=== PATIENT | female | born 1940 | race Caucasian/White ===

== ENCOUNTER 2019-02-16 17:07 | Inpatient (IN) ==
[2019-02-16 17:49] LABS: Hematocrit 38.7 % (35.3-44.9); Hemoglobin 13.2 g/dL (11.5-15.4); Mean Corpuscular HGB Conc 34.1 g/dL (31.6-35.5); Mean Corpuscular Hemoglobin 30.6 pg (28.0-33.3); Mean Corpuscular Volume 89.6 fL (83.0-100.0); Mean Platelet Volume 10.8 fL (9.4-12.4); Platelet Count 287 K/mcL (140-400); Red Blood Count 4.32 M/mcL (3.82-4.97); Red Cell Distribution Width 14.2 % (11.5-14.5); White Blood Count 5.6 K/mcL (4.3-11.1)
[2019-02-16 18:08] LABS: Alanine Aminotransferase 8 Units/L (7-52); Albumin 4.4 g/dL (3.5-5.7); Albumin/Globulin Ratio 1.6 (1.1-2.2); Alkaline Phosphatase 64 Units/L (34-104); Aspartate Amino Transferase 12 Units/L (13-39); BUN/Creatinine Ratio 27 (6-26); Bilirubin,Direct 0.1 mg/dL (0.0-0.2); Bilirubin,Indirect 0.6 mg/dL (0.0-1.2); Bilirubin,Total 0.7 mg/dL (0.3-1.0); Blood Urea Nitrogen 23 mg/dL (8-23); Calcium 9.5 mg/dL (8.6-10.3); Carbon Dioxide 29 mEq/L (23-29); Chloride 94 mEq/L (98-107); Globulin 2.8 g/dL (2.4-3.5); Glucose 168 mg/dL (70-105); Lipase 11 Units/L (11-82); Osmolality,Calculated 292 (280-300); Potassium 3.2 mEq/L (3.5-5.1); Sodium 137 mEq/L (136-145); Total Protein 7.2 g/dL (6.4-8.9); eGFR For African Americans > 60 (> 60); eGFR For Non-African Americans > 60 (> 60)
[2019-02-16 18:23] LABS: Lymphocytes # 1.6 K/mcL (0.6-4.6); Monocytes # 0.9 K/mcL (0.0-1.3); Neutrophils # 3.1 K/mcL (1.6-8.9)
[2019-02-16 18:24] LABS: Platelet Estimate Normal (Normal); Reactive Lymphocytes Present (Not Present)
[2019-02-16] MEDS ORDERED: *HR* Promethazine 25 MG/ML VIAL IVP ONE (19:01)
[2019-02-16] MEDS ORDERED: Famotidine 20 MG/2 ML VIAL IVP ONE (19:01)
[2019-02-16] MEDS ORDERED: 0.9 % Sodium Chloride 1,000 ML IVC ONE (19:01)
--- NOTE | 2019-02-16 19:10 | Emergency Department Note ---
Disposition Clinical Impression: Small bowel obstruction Disposition: Admitted As Inpatient Condition: Fair Referrals: Leilani Vidales MD [Primary Care Provider] - Forms: ED Satisfaction Letter, Work/School Release Time of Disposition: 20:31 Abdominal Pain HPI - General Chief Complaint: ED Abdominal Pain Stated Complaint: Vomiting x3 days Time Seen by Provider: 02/16/19 18:45 Source: patient Mode of arrival: ambulatory Limitations: no limitations Nursing Notes Reviewed: Yes Vital Signs Reviewed: Yes - History of Present Illness Pain Scale: 5 - Related Data Previous Rx's Medication Instructions Recorded Famotidine [Pepcid] 20 mg PO BID #60 tablet 05/08/16 Ondansetron ODT [Zofran ODT] 4 mg SL Q6HR PRN #10 tab.rapdis 05/08/16 Allergies Allergy/AdvReac Type Severity Reaction Status Date / Time Penicillins AdvReac Rash Verified 05/08/16 11:24 All systems ED: reviewed and negative except as stated. Review of Systems: As Per HPI Abdominal Pain PMH - Past Medical History Medical history: Reports: cancer, CHF, CVA, hypertension Female Surgical History: Reports: hysterectomy Psychiatric history: Reports: anxiety, depression - Social History Smoking status: Former smoker Alcohol use: Reports: none Drug use: Reports: none Physical Exam - General Limitations: no limitations General appearance: alert, in no apparent distress Course Vital Signs Temperature 97.9 F 02/16/19 17:12 Pulse Rate 104 02/16/19 17:12 Respiratory Rate 18 02/16/19 17:12 Blood Pressure 143/84 02/16/19 17:12 O2 Sat by Pulse Oximetry 97 02/16/19 17:12 Temperature 97.9 F 02/16/19 17:12 Pulse Rate 104 02/16/19 17:12 Respiratory Rate 18 02/16/19 17:12 Blood Pressure 143/84 02/16/19 17:12 O2 Sat by Pulse Oximetry 100 02/16/19 20:02 Oxygen Delivery Oxygen Delivery Room Air Abdominal Pain - Lab Data Result diagrams: 02/16/19 17:31 18 17:31 Lab Results 02/16/19 02/16/19 Range/Units 17:31 17:31 WBC 5.6 (4.3-11.1) K/mcL RBC 4.32 (3.82-4.97) M/mcL Hgb 13.2 (11.5-15.4) g/dL Hct 38.7 (35.3-44.9) % MCV 89.6 (83.0-100.0) fL MCH 30.6 (28.0-33.3) pg MCHC 34.1 (31.6-35.5) g/dL RDW 14.2 (11.5-14.5) % Plt Count 287 (140-400) K/mcL MPV 10.8 (9.4-12.4) fL Seg Neutrophils % 32.0 % Band Neutrophils % 24.0 H (0-4) % Lymphocytes % 28.0 % Monocytes % 16.0 % Neutrophils # 3.1 (1.6-8.9) K/mcL Lymphocytes # 1.6 (0.6-4.6) K/mcL Monocytes # 0.9 (0.0-1.3) K/mcL Reactive Lymphocytes Present A (Not Present) Platelet Estimate Normal (Normal) Sodium 137 (136-145) mEq/L Potassium 3.2 L (3.5-5.1) mEq/L Chloride 94 L (98-107) mEq/L Carbon Dioxide 29 (23-29) mEq/L BUN 23 (8-23) mg/dL Creatinine 0.86 (0.60-1.20) mg/dL Est GFR ( Amer) > 60 (> 60) Est GFR (Non-Af Amer) > 60 (> 60) BUN/Creatinine Ratio 27 H (6-26) Glucose 168 H (70-105) mg/dL Calculated Osmolality 292 (280-300) Calcium 9.5 (8.6-10.3) mg/dL Total Bilirubin 0.7 (0.3-1.0) mg/dL Direct Bilirubin 0.1 (0.0-0.2) mg/dL Indirect Bilirubin 0.6 (0.0-1.2) mg/dL AST 12 L (13-39) Units/L ALT 8 (7-52) Units/L Alkaline Phosphatase 64 (34-104) Units/L Serum Total Protein 7.2 (6.4-8.9) g/dL Albumin 4.4 (3.5-5.7) g/dL Globulin 2.8 (2.4-3.5) g/dL Albumin/Globulin Ratio 1.6 (1.1-2.2) Lipase 11 (11-82) Units/L Attestation Statement - Attestation Attestation: I have seen this patient with the resident physician, I have personally evaluated this patient. I had reviewed the chart and document dictation by the resident physician and aM in agreement with the information documented by the resident physician. Please see documentation by the resident physician for complete chart including past medical history, family medical history, review of systems, current history and physical and laboratory and imaging studies. I was present for all procedures, provided direct supervision for all procedures, was present for the entirety of all procedures and provided direct guidance during the procedures. Please see documentation by the resident physician for any procedures performed. I have reviewed all interpretations of EKGs, and reviewed all EKGs performed on patient's as well. I have also reviewed reports of imaging as provided by radiology. Patient presented to the emergency room with chief complaint of abdominal b loating sensation nausea and vomiting since Thursday. She states she ate a bunch of peanuts and then afterwards started having the symptoms and she reports she really has not really keep anything down since that time she feels bloated especially in her upper abdomen. She states that she suddenly abdominal pain is just a soreness sensation. Patient denies diarrhea or black or bloody stool does report a history of diverticulitis with similar symptoms related to this in the past. Patient denies headache neck pain chest pain shortness of breath fevers chills cough or sputum production. She states that it does not feel like anything is stuck in her esophagus. She states she has been ill to sip on water but then does start to throw up. She reports a prior hysterectomy and radiation and chemotherapy related to cancer many years ago no other abdominal surgeries. She does not really tried taking anything for this but states that she has just been trying to sip on water because if she eats food or even tries to drink a protein shake or anything like that she will throw up. She denies any urinary changes. She denies leg pain or leg swelling. On presentation she is alert and oriented 3 and in no acute distress. Cranial nerves are intact. Oropharynx reveals no evidence of abnormal mucous membranes. No JVD. Full nontender range of motion of the neck. Heart is regular, occasi onal auscultated PAC. 2/6 systolic murmur rubs or gallops. Lungs are clear. The abdomen is soft and nontender upper abdomen appears slightly bloated although there are auscultated bowel sounds. There is no palpable or pulsatile Mass. no ecchymosis on the abdomen. No fluid wave. No shake tenderness or percussion tenderness. No obvious hernias. Skin is warm dry without rash or petechiae. No significant peripheral edema no evidence of DVT normal distal pulses. Patient had an IV placed she was given IV fluids IV Zofran and IV Pepcid. CBC basic metabolic profile LFTs lipase were all within acceptable limits apart from a slightly low potassium of 3.2. Abdominal CT scan was ordered to rule out acute intra-abdominal pathology such as diverticulitis, bowel perforation, obstruction or other acute surgical process of the abdomen. CT scan as interpreted by radiology showed a small bowel obstruction IMPRESSION: Findings consistent with intermediate grade small bowel obstruction. There is a narrowed loop of small bowel in the right lower quadrant which may reflect a transition point. Patient had NG tube ordered, and surgery was paged. Patient will be admitted to the hospital for further management of a small bowel obstruction.
--- NOTE | 2019-02-16 20:40 | Emergency Department Note ---
Disposition Clinical Impression: Small bowel obstruction Disposition: Admitted As Inpatient Condition: Fair Time of Disposition: 19:41 General Adult HPI - General Chief complaint: ED Abdominal Pain Stated complaint: Vomiting x3 days Time Seen by Provider: 02/16/19 18:45 Source: patient Mode of arrival: ambulatory Limitations: no limitations Nursing Notes Reviewed: Yes Vital Signs Reviewed: Yes - History of Present Illness HPI Narrative: Patient is 78-year-old female past medical history of uterine cancer with removal and radiation. Presenting the emergency department tonight for a bdominal bloating and nausea and vomiting since Thursday. She states she had a bunch of peanuts and developed the symptoms and has available to keep down anything sustained she describes her abdominal pain as a soreness sensation. Patient denies dark tarry stools or bright red blood she has been having bowel movements and has a history of diverticulitis patient denies chest pain, shortness of breath, headache, neck pain, fevers, chills, cough. She has not tried taking any pain medications and has only been taking sips of water she says she throws up immediately. Pain Scale: 5 - Related Data Home Medications Medication Instructions Recorded Confirmed Aspirin/Calcium Carbonate/Mag 325 mg PO DAILY 02/16/19 02/16/19 [Aspirin Buffered 325 mg Tab] Furosemide [Lasix] 40 mg PO DAILY PRN 02/16/19 02/16/19 Pravastatin Sodium [Pravachol] 40 mg PO DAILY 02/16/19 02/16/19 Metoprolol [Lopressor] 100 mg PO BID 02/17/19 02/17/19 Allergies Allergy/AdvReac Type Severity Reaction Status Date / Time Penicillins AdvReac Rash Verified 05/08/16 11:24 All systems ED: reviewed and negative except as stated. Review of Systems: As Per HPI Constitutional: Denies: fever, chills Eyes: Denies: eye pain, eye discharge ENT ED: Denies: ear pain, throat pain Cardiovascular: Denies: chest pain, palpitations Respiratory: Denies: cough, dyspnea, wheezes Gastrointestinal: Reports: abdominal pain, nausea Genitourinary: Denies: urgency, dysuria Musculoskeletal: Denies: back pain, neck pain Integumentary: Denies: rash, abrasion Neurological: Denies: headache, weakness Psychiatric: Denies: anxiety, depression Endocrine: Denies: fatigue, heat or cold intolerance Hematological/Lymphatic: Denies: easy bleeding, easy bruising Allergic/Immunologic: Denies: facial swelling, urticaria Past Medical History - Past Medical History Attestation: Yes The following information was validated with the patient. Medical history: Reports: cancer, CHF, CVA, hypertension Psychiatric history: Reports: anxiety, depression - Social History Smoking Status: Former smoker Smokeless Tobacco Status: No Alcohol use: Reports: none Drug use: Reports: none Physical Exam - General Limitations: no limitations General appearance: alert, in no apparent distress - Head Head exam: atraumatic, normocephalic - Eye Eye exam: Present: normal appearance, PERRL, EOMI - ENT ENT exam: normal exam, normal oropharynx, mucous membranes moist - Neck Neck exam: Present: normal inspection, full ROM - Chest Chest inspection: Present: normal inspection, symmetric chest wall rise. Absent: tenderness - Respiratory Respiratory exam: Present: normal lung sounds bilaterally. Absent: respiratory distress, wheezes - Cardiovascular Cardiovascular exam: Present: regular rate, normal rhythm, normal heart sounds - Abdominal Exam Abdominal exam: Present: soft, tenderness Abdominal tenderness: Present: epigastrium, mild - Extremities Exam Extremities exam: Present: normal inspection, full ROM - Expanded Lower Extremity Exam Hip/Pelvis exam: Present: normal inspection, full ROM Neurovascular/Tendon exam: Present: normal capillary refill. Absent: pulse deficit, motor deficit - Back Exam Back exam: Present: normal inspection, full ROM - Neurological Exam Neurological exam: Present: alert, oriented X3 - Psychiatric Psychiatric exam: Present: normal affect, normal mood - Skin Skin exam: Present: warm, dry Course Vital Signs Temperature 97.9 F 02/16/19 17:12 Pulse Rate 104 02/16/19 17:12 Respiratory Rate 18 02/16/19 17:12 Blood Pressure 143/84 02/16/19 17:12 O2 Sat by Pulse Oximetry 97 02/16/19 17:12 Temperature 98.6 F 02/16/19 22:21 Pulse Rate 83 02/16/19 22:21 Respiratory Rate 16 02/16/19 22:21 Blood Pressure 138/78 02/16/19 22:21 O2 Sat by Pulse Oximetry 94 02/16/19 22:21 Oxygen Delivery Oxygen Delivery Room Air Medical Decision Making - [facility] Narrative Medical decision making narrative: Patient presenting with nausea and vomiting abdominal pain concern for small bowel obstruction or gastritis or other obstruction. We will evaluate with labs as well as a CT scan of the abdomen and pelvis. Patient is given IV fluids IV Zofran and IV Pepcid. The patient found to have a small bowel obstruction on CT scan Discussed the patient's case with general surgery who will see her. Patient to be admitted to hospitalist service. - Medical Records Medical records reviewed: Yes I reviewed the patient's medical records. - Lab Data Lab results reviewed: Yes I reviewed the patient's lab results. Result diagrams: 02/17/19 09:08 02/17/19 09:08 Lab Results 02/16/19 02/16/19 02/16/19 Range/Units 17:31 17:31 21:01 WBC 5.6 (4.3-11.1) K/mcL RBC 4.32 (3.82-4.97) M/mcL Hgb 13.2 (11.5-15.4) g/dL Hct 38.7 (35.3-44.9) % MCV 89.6 (83.0-100.0) fL MCH 30.6 (28.0-33.3) pg MCHC 34.1 (31.6-35.5) g/dL RDW 14.2 (11.5-14.5) % Plt Count 287 (140-400) K/mcL MPV 10.8 (9.4-12.4) fL Seg Neutrophils % 32.0 % Band Neutrophils % 24.0 H (0-4) % Lymphocytes % 28.0 % Monocytes % 16.0 % Neutrophils # 3.1 (1.6-8.9) K/mcL Lymphocytes # 1.6 (0.6-4.6) K/mcL Monocytes # 0.9 (0.0-1.3) K/mcL Reactive Lymphocytes Present A (Not Present) Platelet Estimate Normal (Normal) Sodium 137 (136-145) mEq/L Potassium 3.2 L (3.5-5.1) mEq/L Chloride 94 L (98-107) mEq/L Carbon Dioxide 29 (23-29) mEq/L BUN 23 (8-23) mg/dL Creatinine 0.86 (0.60-1.20) mg/dL Est GFR ( Amer) > 60 (> 60) Est GFR (Non-Af Amer) > 60 (> 60) BUN/Creatinine Ratio 27 H (6-26) Glucose 168 H (70-105) mg/dL Calculated Osmolality 292 (280-300) Calcium 9.5 (8.6-10.3) mg/dL Total Bilirubin 0.7 (0.3-1.0) mg/dL Direct Bilirubin 0.1 (0.0-0.2) mg/dL Indirect Bilirubin 0.6 (0.0-1.2) mg/dL AST 12 L (13-39) Units/L ALT 8 (7-52) Units/L Alkaline Phosphatase 64 (34-104) Units/L Serum Total Protein 7.2 (6.4-8.9) g/dL Albumin 4.4 (3.5-5.7) g/dL Globulin 2.8 (2.4-3.5) g/dL Albumin/Globulin Ratio 1.6 (1.1-2.2) Lipase 11 (11-82) Units/L Urine Color Yellow (Yellow) Urine Clarity Clear (Clear) Urine pH 6.0 (5.0-8.0) pH Units Ur Specific [place] 1.027 H (1.010-1.025) Urine Protein 100 H (Neg-Trace) mg/dL Urine Glucose (UA) Normal (Normal) mg/dL Urine Ketones 15 H (Negative) mg/dL Urine Blood Trace H (Negative) Urine Nitrite Negative (Negative) Urine Bilirubin Small H (Negative) Urine Urobilinogen Normal (Normal) mg/dL Ur Leukocyte Esterase Negative (Negative) Urine Microscopic RBC 15-30 H (0-3) per hpf Urine Microscopic WBC 0-3 (0-3) per hpf Ur Squamous Epith Cells Moderate H (None-Few) per lpf Urine Bacteria None Seen (None-Few) per hpf Hyaline Casts None Seen (None-Few) per lpf Ur Culture Indicated? NO (NO) - Radiology Data Radiology results reviewed: Yes I reviewed the patient's radiology results. Abdomen/Pelvis CT 02/16/19 19:52 IMPRESSION: Findings consistent with intermediate grade small bowel obstruction. There is a narrowed loop of small bowel in the right lower quadrant which may reflect a transition point. D/ / 02/16/2019 20:05:19 Gustavo Baez MD / farideh Interpreting Provider: Gustavo Baez MD Attestation Statement - Attestation Attestation: I have seen this patient with the resident physician, I have personally evaluated this patient. I had reviewed the chart and document dictation by the resident physician and aM in agreement with the information documented by the resident physician. Please see documentation by the resident physician for complete chart including past medical history, family medical history, review of systems, current history and physical and laboratory and imaging studies. I was present for all procedures, provided direct supervision for all procedur es, was present for the entirety of all procedures and provided direct guidance during the procedures. Please see documentation by the resident physician for any procedures performed. I have reviewed all interpretations of EKGs, and reviewed all EKGs performed on patient's as well. I have also reviewed reports of imaging as provided by radiology.
[2019-02-16 21:23] LABS: Bilirubin,Urine Small (Negative); Blood,Urine Trace (Negative); Clarity,Urine Clear (Clear); Color,Urine Yellow (Yellow); Glucose,Urine (UA) Normal (Normal); Ketones,Urine 15 mg/dL (Negative); Leukocyte Esterase,Urine Negative (Negative); Nitrite,Urine Negative (Negative); Protein,Urine 100 mg/dL (Neg-Trace); Specific Gravity,Urine 1.027 (1.010-1.025); Urobilinogen,Urine Normal (Normal)
[2019-02-16 21:26] LABS: Bacteria,Urine None Seen per hpf (None-Few); Hyaline Casts,Urine None Seen per lpf (None-Few); RBC,Urine 15-30 per hpf (0-3); Squamous Epithelial Cell,Urine Moderate per lpf (None-Few); WBC,Urine 0-3 per hpf (0-3)
--- NOTE | 2019-02-17 03:26 | AcuteCare Surgery Consult Note ---
Date of Encounter: 02/17/19 Time of Encounter: 03:22 Assessment and Plan (1) Small bowel obstruction Current Visit: Yes Status: Acute 78F with small bowel obstruction; afebrile but with bandemia; NPO IVF NG to LIWS recommend starting IV abx trend uop, temp, wbc replace electrolytes - hypokalemia limit narcotics awaiting return of bowel function; will cont to follow History of Present Illness Consult date: 02/17/19 Reason for consult: abdominal pain History of present illness: 78F PMh significant for cervical cancer, CHF, CVA, hypertension, SUSAN-BSO who presents with with 3 days of abdominal pain, PO intolerance (nausea, vomiting). She believes it is related to eating a peanut. Since that moment three days she has had pain along the RLQ, non radiating, non migrating, rates 7/10. The nausea and vomiting have been persistent. To the point she hasn't had much to eat or drink over the last 2-3 days. She has never had a colonoscopy. Her last bowel movement was one day prior to admission and her last episode of flatus was the day of evaluation. NO reports of fevers, chills, chest pain, nor shortness of breath. Of note, a CT scan was obtained, which was reviewed and interpreted by me, which demonstrated dilated small bowel loops with a transition point in the RLQ. Past Med Surg Social Fam HX - Past Medical History Medical history: cancer, CHF, CVA, hypertension Additional medical history: cervical cancer Psychiatric history: anxiety, depression - Past Surgical History Surgical History: hysterectomy - Social History Smoking Status: Former smoker Smokeless Tobacco Status: No Alcohol use: none Drug use: none - Family History Mother Living Status: Hx Family Cardiac Disorders: Yes Father Living Status: Hx Family Cardiac Disorders: Yes Medications and Allergies Famotidine [Pepcid] 20 mg PO BID #60 tablet 05/08/16 [Rx] Ondansetron ODT [Zofran ODT] 4 mg SL Q6HR PRN #10 tab.rapdis 05/08/16 [Rx] Aspirin/Calcium Carbonate/Mag [Aspirin Buffered 325 mg Tab] 325 mg PO DAILY 02/16/19 [History] Furosemide [Lasix] 40 mg PO DAILY PRN 02/16/19 [History] Metoprolol Tartrate 100 mg PO BID 02/16/19 [History] Pravastatin Sodium [Pravachol] 40 mg PO DAILY 02/16/19 [History] Allergy/AdvReac Type Severity Reaction Status Date / Time Penicillins AdvReac Rash Verified 05/08/16 11:24 Review of Systems All systems PM: 12 point ROS negative besides HPI findings General Surgery Exam Initial Vital Signs Temp Pulse Resp BP Pulse Ox 97.9 F 104 18 143/84 97 02/16/19 17:12 02/16/19 17:12 02/16/19 17:12 02/16/19 17:12 02/16/19 17:12 - General physical appearance no distress - Eyes PERRL, normal ocular movement - ENT normocephalic - Neck trachea midline, no lymphadectomy - Respiratory normal expansion, normal respiratory effort - Cardiovascular Cardiovascular exam: Present: RRR - Abdomen Abdomen general surgery: Present: soft, distended - Integumentary Integumentary general surgery: Present: warm and dry - Neurologic Present: CN 2-12 grossly intact - Musculoskeletal Present: normal posture - Psychiatric Psychiatric general surgery: Present: A&Ox3 Exam Initial Vital Signs Temp Pulse Resp BP Pulse Ox 97.9 F 104 18 143/84 97 02/16/19 17:12 02/16/19 17:12 02/16/19 17:12 02/16/19 17:12 02/16/19 17:12 Results - Labs 02/16/19 17:31 02/16/19 17:31 Abnormal lab results Band Neutrophils % 24.0 % (0-4) H 02/16/19 17:31 Reactive Lymphocytes Present (Not Present) A 02/16/19 17:31 Potassium 3.2 mEq/L (3.5-5.1) L 02/16/19 17:31 Chloride 94 mEq/L (98-107) L 02/16/19 17:31 BUN/Creatinine Ratio 27 (6-26) H 02/16/19 17:31 Glucose 168 mg/dL (70-105) H 02/16/19 17:31 AST 12 Units/L (13-39) L 02/16/19 17:31 Ur Specific [place] 1.027 (1.010-1.025) H 02/16/19 21:01 Urine Protein 100 mg/dL (Neg-Trace) H 02/16/19 21:01 Urine Ketones 15 mg/dL (Negative) H 02/16/19 21:01 Urine Blood Trace (Negative) H 02/16/19 21:01 Urine Bilirubin Small (Negative) H 02/16/19 21:01 Urine Microscopic RBC 15-30 per hpf (0-3) H 02/16/19 21:01 Ur Squamous Epith Cells Moderate per lpf (None-Few) H 02/16/19 21:01 Diabetes panel 02/16/19 Range/Units 17:31 Sodium 137 (136-145) mEq/L Potassium 3.2 L (3.5-5.1) mEq/L Chloride 94 L (98-107) mEq/L Carbon Dioxide 29 (23-29) mEq/L BUN 23 (8-23) mg/dL Creatinine 0.86 (0.60-1.20) mg/dL Glucose 168 H (70-105) mg/dL Calcium 9.5 (8.6-10.3) mg/dL AST 12 L (13-39) Units/L ALT 8 (7-52) Units/L Alkaline Phosphatase 64 (34-104) Units/L Albumin 4.4 (3.5-5.7) g/dL Calcium panel 02/16/19 Range/Units 17:31 Calcium 9.5 (8.6-10.3) mg/dL Albumin 4.4 (3.5-5.7) g/dL Pituitary panel 02/16/19 Range/Units 17:31 Sodium 137 (136-145) mEq/L Potassium 3.2 L (3.5-5.1) mEq/L Chloride 94 L (98-107) mEq/L Carbon Dioxide 29 (23-29) mEq/L BUN 23 (8-23) mg/dL Creatinine 0.86 (0.60-1.20) mg/dL Glucose 168 H (70-105) mg/dL Calcium 9.5 (8.6-10.3) mg/dL Adrenal panel 02/16/19 Range/Units 17:31 Sodium 137 (136-145) mEq/L Potassium 3.2 L (3.5-5.1) mEq/L Chloride 94 L (98-107) mEq/L Carbon Dioxide 29 (23-29) mEq/L BUN 23 (8-23) mg/dL Creatinine 0.86 (0.60-1.20) mg/dL Glucose 168 H (70-105) mg/dL Calcium 9.5 (8.6-10.3) mg/dL Total Bilirubin 0.7 (0.3-1.0) mg/dL AST 12 L (13-39) Units/L ALT 8 (7-52) Units/L Alkaline Phosphatase 64 (34-104) Units/L Albumin 4.4 (3.5-5.7) g/dL All other labs normal. - Imaging CT scan - abdomen: report reviewed, image reviewed CT scan - pelvis: report reviewed, image reviewed Consult Discharge Plan - Plan Referrals: Leilani Vidales MD [Primary Care Provider] -
[2019-02-17] MEDS: D5% in Lactated Ringers 1,000 ML IVC SCH ×2 (03:52→18:46)
[2019-02-17 04:59] LABS: Magnesium 2.1 mg/dL (1.6-2.6)
[2019-02-17] MEDS: MetroNIDAZOLE 500 MG/100 ML 500 MG/100 ML BAG IVPB SCH ×3 (06:05→21:23)
[2019-02-17] MEDS ORDERED: Naloxone 0.4 MG/ML INJ IVP PRN (07:25)
--- NOTE | 2019-02-17 07:29 | Internal Med History&Physical ---
Date of Encounter: 02/17/19 Time of Encounter: 04:33 Internal Medicine - H&P: HPI Chief complaint: Small bowel obstruction Admitted From: Emergency Dept Plans for Post Hospital Care: Home History of present illness: Ms. Velez is a 78 year old female Patient presented to the ER with nausea and vomiting for several days. she states that se ate a peanut butter sandwich 4 days ago, and since then she had nausea and vomiting. She developed soreness in her upper abdomen as well. Since the nausea began she has not been able to keep anything down. s her symptoms were not improving, she came to the ER for further evaluation. ER vital signs within normal limits CBC unremarkable BMP notable for Potassium of 3.2, glucose of 168. Urinalysis: elevated specific gravity, otherwise negative for infection CT abdomen and pelvis: IMPRESSION: Findings consistent with intermediate grade small bowel obstruction. There is a narrowed loop of small bowel in the right lower quadrant which may reflect a transition point. Emergency department consulted general surgery who evaluated the patient, recommended IV antibiotics, NG tube and further observation. She was admitted to the hospital for continued management. Upon my evaluation, patient is resting comfortable in the hospital bed in no acute distress. She denies chest pain, nausea, vomiting, diarrhea and constipation. She continues to have slight soreness in her upper abdomen but it has improved. Her nausea and vomiting have resolved since placing the NG tube. She as never had symptoms like this before. She has had several abdominal surgeries in the past however. She is a full code. Past Med Surg Social Fam HX - Past Medical History Medical history: cancer, CHF, CVA, hypertension Additional medical history: cervical cancer Psychiatric history: anxiety, depression - Past Surgical History Surgical History: hysterectomy - Social History Smoking Status: Former smoker Smokeless Tobacco Status: No Alcohol use: none Drug use: none - Family History Mother Living Status: Hx Family Cardiac Disorders: Yes Father Living Status: Hx Family Cardiac Disorders: Yes Internal Medicine - H&P: Meds Famotidine [Pepcid] 20 mg PO BID #60 tablet 05/08/16 [Rx] Ondansetron ODT [Zofran ODT] 4 mg SL Q6HR PRN #10 tab.rapdis 05/08/16 [Rx] Aspirin/Calcium Carbonate/Mag [Aspirin Buffered 325 mg Tab] 325 mg PO DAILY 02/16/19 [History] Furosemide [Lasix] 40 mg PO DAILY PRN 02/16/19 [History] Metoprolol Tartrate 100 mg PO BID 02/16/19 [History] Pravastatin Sodium [Pravachol] 40 mg PO DAILY 02/16/19 [History] Allergy/AdvReac Type Severity Reaction Status Date / Time Penicillins AdvReac Rash Verified 05/08/16 11:24 All Systems PM: A 10-system review of systems was performed and is negative for pertinent findings except as documented above in the HPI. - Constitutional Vitals: Temp Pulse Resp BP Pulse Ox 97.8 F 89 16 147/68 93 02/17/19 03:58 02/17/19 03:58 02/17/19 03:58 02/17/19 03:58 02/17/19 03:58 General appearance: Present: cooperative, A&O X 3, pleasant, no acute distress, answers questions appropriately Exam: - - Head Head exam: Present: normal inspection - Eye Eye exam: Present: EOMI, normal appearance - Respiratory Respiratory exam: Present: CTAB. Absent: rales, respiratory distress, rhonchi, wheezes - Cardiovascular Cardiovascular exam: Present: RRR. Absent: diastolic murmur, systolic murmur - GI/Abdominal GI/Abdominal exam: Present: normal bowel sounds, soft, tenderness Additional comments: Mild tenderness with palpation in the epigastric region - Extremities Exam Extremities exam: Present: warm, radial pulses palpable and symmetrical. Absent: calf tenderness, pedal edema, tenderness - Neurological Exam Neurological exam: Present: no focal deficits, strengths equal and symetr thr oughout. Absent: motor sensory deficit, facial droop, speech deficit - Skin Skin exam: Present: dry, normal color, warm Internal Med - H&P Results - Labs CBC & Chem 7: 02/16/19 17:31 02/16/19 17:31 Labs: Short CBC 02/16/19 Range/Units 17:31 WBC 5.6 (4.3-11.1) K/mcL Hgb 13.2 (11.5-15.4) g/dL Hct 38.7 (35.3-44.9) % Plt Count 287 (140-400) K/mcL Neutrophils # 3.1 (1.6-8.9) K/mcL BMP 02/16/19 17:31 Sodium 137 Potassium 3.2 L Chloride 94 L Carbon Dioxide 29 BUN 23 Creatinine 0.86 Glucose 168 H Calcium 9.5 Liver Function 02/16/19 Range/Units 17:31 Total Bilirubin 0.7 (0.3-1.0) mg/dL Direct Bilirubin 0.1 (0.0-0.2) mg/dL AST 12 L (13-39) Units/L ALT 8 (7-52) Units/L Alkaline Phosphatase 64 (34-104) Units/L Albumin 4.4 (3.5-5.7) g/dL Urine 02/16/19 Range/Units 21:01 Urine Color Yellow (Yellow) Urine Clarity Clear (Clear) Urine pH 6.0 (5.0-8.0) pH Units Ur Specific [place] 1.027 H (1.010-1.025) Urine Protein 100 H (Neg-Trace) mg/dL Urine Glucose (UA) Normal (Normal) mg/dL - Impressions ITS Impressions Abdomen/Pelvis CT 02/16/19 19:52 IMPRESSION: Findings consistent with intermediate grade small bowel obstruction. There is a narrowed loop of small bowel in the right lower quadrant which may reflect a transition point. D/ / 02/16/2019 20:05:19 Gustavo Baez MD / [facility] Interpreting Provider: Gustavo Baez MD - Assessment and Plan (1) Small bowel obstruction Current Visit: Yes Status: Acute Assessment and plan: Seen by general surgery. Patient has had NG tube placed and was started on levaquin and flagyl. Continue IV antibiotics IV fluid hydration Monitor for worsening signs of infection Follow up further general surgery recommendations. (2) Nausea and vomiting Current Visit: Yes Status: Acute Assessment and plan: Now resolved with placement of the NG tube. Continue to monitor IV nausea medications as needed. Qualifiers: Vomiting type: unspecified Vomiting Intractability: unspecified Qualified Code(s): R11.2 - Nausea with vomiting, unspecified (3) Hypokalemia Current Visit: Yes Status: Acute Assessment and plan: Potassium mildly low at 3.2 Replete as indicated Magnesium level 2.1 Continue to monitor (4) DVT prophylaxis Current Visit: Yes Status: Acute Assessment and plan: SCDs - Time Spent With Patient Total time spent is greater than 50% in coordination of care (as documented) at patient's floor/unit and/or counseling patient:
[2019-02-17] MEDS ORDERED: 0.9 % Sodium Chloride 1,000 ML IVC SCH (07:30)
[2019-02-17] MEDS ORDERED: Potassium Chloride 40 MEQ, Lidocaine 1% 2 ML in D5% in Water 500 ML IVPB ONE (07:38)
[2019-02-17] MEDS ORDERED: Ondansetron 4 MG/2 ML VIAL IVP PRN (07:42)
[2019-02-17] MEDS ORDERED: Potassium Chloride 40 MEQ, Lidocaine 1% 2 ML in 0.9 % Sodium Chloride 500 ML IVPB ONE (08:15)
[2019-02-17] MEDS: levoFLOXacin 750 MG/150 ML 750 MG/150 ML BAG IVPB SCH (08:53)
--- NOTE | 2019-02-17 08:53 | Event Note ---
Date of Encounter: 02/17/19 Time of Encounter: 08:52 SBO: seen on CT - NG to KATHRINE - ramiro flores and ana - [email or web address] will plan for SBFT later today Chronic HFpEF: noted
[2019-02-17 09:27] LABS: Hematocrit 35.7 % (35.3-44.9); Mean Corpuscular HGB Conc 33.6 g/dL (31.6-35.5); Mean Corpuscular Hemoglobin 30.9 pg (28.0-33.3); Mean Platelet Volume 10.5 fL (9.4-12.4); Platelet Count 231 K/mcL (140-400); Red Blood Count 3.88 M/mcL (3.82-4.97); Red Cell Distribution Width 14.4 % (11.5-14.5); White Blood Count 4.7 K/mcL (4.3-11.1)
[2019-02-17 09:45] LABS: BUN/Creatinine Ratio 23 (6-26); Blood Urea Nitrogen 17 mg/dL (8-23); Calcium 8.5 mg/dL (8.6-10.3); Carbon Dioxide 28 mEq/L (23-29); Chloride 103 mEq/L (98-107); Glucose 121 mg/dL (70-105); Osmolality,Calculated 293 (280-300); Potassium 2.8 mEq/L (3.5-5.1); Sodium 140 mEq/L (136-145); eGFR For African Americans > 60 (> 60); eGFR For Non-African Americans > 60 (> 60)
--- NOTE | 2019-02-17 15:51 | Acute Care Surgery Event Note ---
Date of Encounter: 02/17/19 Time of Encounter: 15:48 SBFT unremarkable. Pt is having BMs s/p SBFT. Denies nausea or abdominal pain. OK to pull NG and start CLD. ADAT. No acute surgical intervention indicated. Incidental finding of cystic lesion on pancreatic head. Will review with attending surgeon. Do not anticipate any surgical intervention is indicated.
[2019-02-17] MEDS ORDERED: Potassium Chloride Elixir 20 MEQ/15 ML UDC PO ONE (18:26)
[2019-02-17] MEDS: Metoprolol 100 MG TABLET PO SCH (21:19)
[2019-02-18 06:07] LABS: Hemoglobin 10.5 g/dL (11.5-15.4); Mean Corpuscular HGB Conc 32.8 g/dL (31.6-35.5); Mean Corpuscular Hemoglobin 30.5 pg (28.0-33.3); Platelet Count 196 K/mcL (140-400); Red Blood Count 3.44 M/mcL (3.82-4.97); Red Cell Distribution Width 14.2 % (11.5-14.5); White Blood Count 5.3 K/mcL (4.3-11.1)
[2019-02-18 06:22] LABS: BUN/Creatinine Ratio 12 (6-26); Blood Urea Nitrogen 8 mg/dL (8-23); Calcium 8.2 mg/dL (8.6-10.3); Carbon Dioxide 26 mEq/L (23-29); Chloride 103 mEq/L (98-107); Glucose 131 mg/dL (70-105); Magnesium 1.9 mg/dL (1.6-2.6); Osmolality,Calculated 284 (280-300); Potassium 2.7 mEq/L (3.5-5.1); Sodium 137 mEq/L (136-145); eGFR For African Americans > 60 (> 60); eGFR For Non-African Americans > 60 (> 60)
[2019-02-18] MEDS: D5% in Lactated Ringers 1,000 ML IVC SCH ×2 (06:54→17:24)
[2019-02-18] MEDS: MetroNIDAZOLE 500 MG/100 ML 500 MG/100 ML BAG IVPB SCH (06:55)
--- NOTE | 2019-02-18 07:55 | AcuteCareSurgery Progress Note ---
<Marj Moreira - Last Filed: 02/18/19 07:53> Date of Encounter: 02/18/19 Time of Encounter: 07:53 - Assessment and Plan (1) Small bowel obstruction Current Visit: Yes Status: Resolved Small bowel follow-through unremarkable. Patient is having multiple bowel movements. She is tolerating a clear liquid diet. We will advance her to soft diet. Acute care surgery will sign off at this time. Thank you for allowing us to participate in Ms. Velez's care. No surgical follow- is needed Subjective Patient reports: no new complaints, feels better, flatus, bowel movement Objective Vital Signs - Last 8 Hours Temp Pulse Resp BP Pulse Ox 02/18/19 06:26 98.6 F 82 16 143/82 94 02/18/19 03:31 98.9 F 110 16 139/67 94 Intake and Output 02/17/19 02/17/19 02/18/19 15:59 23:59 07:59 Intake Total 1250 / 1624 274 / 1624 826 / 826 Output Total 1575 / 3700 625 / 3700 0 / 0 Balance -325 / -2076 -351 / -2076 826 / 826 Intake: IV Fluids 1250 / 1624 274 / 1624 826 / 826 D5% & Lact. Ringers 1000 Ml Bag 1000 / 1174 174 / 1174 826 / 826 1,000 ML @ 100 mls/hr IVC . Q10H ORAL Rx#:[id number] Flagyl Premix 500 MG/100 ML 500 100 / 300 100 / 300 mg In 100 ml @ 100 mls/hr IVPB Q8H ORAL Rx#:[id number] Levaquin Premix 750mg/150 mL 150 / 150 750 mg In 150 ml @ 100 mls/hr IVPB DAILY ORAL Rx#:[id number] Output: Urine 500 / 1500 200 / 1500 0 / 0 Stool 800 / 800 Gastric Tube Lavage Amount 100 / 100 Left Nare 100 / 100 Gastric Drainage 275 / 1300 325 / 1300 Other: Meal npo Stool Size Small Stool Consistency liquid soft Stool Color Brown Brown # Urine Diapers 1 Weight 76.4 kg Blood Glucose* 107 Patient Weight 02/18/19 23:59 Weight 76.4 kg - General physical appearance no distress - ENT atraumatic, normocephalic - Abdomen Abdomen: Present: bowel sounds present, soft, non tender - Musculoskeletal normal posture - Psychiatric oriented to time, oriented to person, oriented to place - Labs 02/18/19 05:11 02/18/19 05:11 Diabetes panel 02/17/19 02/18/19 Range/Units 09:08 05:11 Sodium 140 137 (136-145) mEq/L Potassium 2.8 L 2.7 L (3.5-5.1) mEq/L Chloride 103 103 (98-107) mEq/L Carbon Dioxide 28 26 (23-29) mEq/L BUN 17 8 (8-23) mg/dL Creatinine 0.75 0.67 (0.60-1.20) mg/dL Glucose 121 H 131 H (70-105) mg/dL Calcium 8.5 L 8.2 L (8.6-10.3) mg/dL Calcium panel 02/17/19 02/18/19 Range/Units 09:08 05:11 Calcium 8.5 L 8.2 L (8.6-10.3) mg/dL Pituitary panel 02/17/19 02/18/19 Range/Units 09:08 05:11 Sodium 140 137 (136-145) mEq/L Potassium 2.8 L 2.7 L (3.5-5.1) mEq/L Chloride 103 103 (98-107) mEq/L Carbon Dioxide 28 26 (23-29) mEq/L BUN 17 8 (8-23) mg/dL Creatinine 0.75 0.67 (0.60-1.20) mg/dL Glucose 121 H 131 H (70-105) mg/dL Calcium 8.5 L 8.2 L (8.6-10.3) mg/dL Adrenal panel 02/17/19 02/18/19 Range/Units 09:08 05:11 Sodium 140 137 (136-145) mEq/L Potassium 2.8 L 2.7 L (3.5-5.1) mEq/L Chloride 103 103 (98-107) mEq/L Carbon Dioxide 28 26 (23-29) mEq/L BUN 17 8 (8-23) mg/dL Creatinine 0.75 0.67 (0.60-1.20) mg/dL Glucose 121 H 131 H (70-105) mg/dL Calcium 8.5 L 8.2 L (8.6-10.3) mg/dL Consult Discharge Plan - Plan Referrals: Leilani Vidales MD [Primary Care Provider] - <Christopher Bland M - Last Filed: 02/19/19 06:56> Date of Encounter: 02/18/19 Objective Vital Signs - Last 8 Hours Temp Pulse Resp BP Pulse Ox 02/19/19 06:46 98.1 F 82 15 139/64 95 02/19/19 03:36 98.4 F 90 16 157/77 93 Intake and Output 02/18/19 02/18/19 02/19/19 15:59 23:59 07:59 Intake Total 580 / 2646 1240 / 2646 0 / 0 Output Total 200 / 400 200 / 400 0 / 0 Balance 380 / 2246 1040 / 2246 0 / 0 Intake: IV Fluids 100 / 1926 1000 / 1926 D5% & Lact. Ringers 1000 Ml Bag 1000 / 1826 1,000 ML @ 100 mls/hr IVC . Q10H ORAL Rx#:[id number] Flagyl Premix 500 MG/100 ML 500 100 / 100 mg In 100 ml @ 100 mls/hr IVPB Q8H ORAL Rx#:[id number] Oral 480 / 720 240 / 720 0 / 0 Output: Urine 200 / 400 200 / 400 0 / 0 Other: Meal Lunch Dinner Percent of Meal Consumed 25% 25% Stool Size Moderate Stool Consistency liquid Stool Characteristics [place] Stool Color Brown # Urine Diapers 1 # Bowel Movements 1 Weight 77.2 kg Patient Weight 02/19/19 23:59 Weight 77.2 kg - Labs 02/18/19 05:11 02/19/19 02:27 Diabetes panel 02/18/19 02/19/19 Range/Units 14:53 02:27 Sodium 136 (136-145) mEq/L Potassium 3.2 L 3.3 L (3.5-5.1) mEq/L Chloride 103 (98-107) mEq/L Carbon Dioxide 26 (23-29) mEq/L BUN 5 L (8-23) mg/dL Creatinine 0.78 (0.60-1.20) mg/dL Glucose 114 H (70-105) mg/dL Calcium 7.9 L (8.6-10.3) mg/dL Calcium panel 02/19/19 Range/Units 02:27 Calcium 7.9 L (8.6-10.3) mg/dL Pituitary panel 02/18/19 02/19/19 Range/Units 14:53 02:27 Sodium 136 (136-145) mEq/L Potassium 3.2 L 3.3 L (3.5-5.1) mEq/L Chloride 103 (98-107) mEq/L Carbon Dioxide 26 (23-29) mEq/L BUN 5 L (8-23) mg/dL Creatinine 0.78 (0.60-1.20) mg/dL Glucose 114 H (70-105) mg/dL Calcium 7.9 L (8.6-10.3) mg/dL Adrenal panel 02/18/19 02/19/19 Range/Units 14:53 02:27 Sodium 136 (136-145) mEq/L Potassium 3.2 L 3.3 L (3.5-5.1) mEq/L Chloride 103 (98-107) mEq/L Carbon Dioxide 26 (23-29) mEq/L BUN 5 L (8-23) mg/dL Creatinine 0.78 (0.60-1.20) mg/dL Glucose 114 H (70-105) mg/dL Calcium 7.9 L (8.6-10.3) mg/dL - Attending Attestation I have personally performed a face to face evaluation on this patient. I have reviewed and agree with the care plan. History and Exam by me shows: I reviewed the above assessment and evaluation with the nurse practitioner and agree with the above plan. We will sign off. Please contact us if there are any questions.
[2019-02-18] MEDS: levoFLOXacin 750 MG/150 ML 750 MG/150 ML BAG IVPB SCH (09:18)
[2019-02-18] MEDS: Metoprolol 100 MG TABLET PO SCH ×2 (09:18→19:47)
--- NOTE | 2019-02-18 14:35 | Internal Med Progress Note ---
Hospitalist Progress Note - Encounter Date of Encounter: 02/18/19 Time of Encounter: 09:05 - Subjective Interval History: Patient feeling great today, no abd pain, no N/V, no diarrhea, says abd no longer hurting and is not firm. She is tolerating PO today. NG removed last night and she tolerated liquids yesterday, and per GenSurg is up to softs today. Hopeful to leave. K is still low, no palpitations. - Exam Vitals: Temp Pulse Resp BP Pulse Ox 97.9 F 86 15 144/76 95 02/18/19 14:17 02/18/19 14:17 02/18/19 14:17 02/18/19 14:17 02/18/19 14:17 Exam: General: NAD, good eye contact, relatively well appearing, elderly Thoracic: Normal breath sounds b/l, no wheezing or crackles Cardio: Normal S1 and S2, regular rate and rhythm Abdomen: Soft, nontender, nondistended Extremities: Warm, well perfused. DP pulses 2+ b/l. No edema. Skin: Intact. No rashes, bruises, or ulcers Neuro: Awake, fully oriented. Speech fluent - Summary of Assessment and Plan Summary of Assessment and Plan: Nubia Domingo is a 78 F w hx CVA, HFpEF, HTN, anx/dep, cervical cancer s/p resection, who p/w abd pain, N/V, and CT showing dilated bowel and RLQ transition point, concerning for SBO. SBO: seen on CT, improved during SBFT, able to have NG removed last night - GenSurg following, appreciate co-management - d/c fluids - d/c abx - advance to softs - wean pain meds Hypokalemia: replace and monitor HFpEF: home lasix 40 daily prn CVA: ASA, statin HTN: home metoprolol 100 bid Anx/dep: not on home meds but is definitely depressed, at least situationally, and will benefit from counseling PPx: SCDs Tele: no Activity: up w assist FEN: advancing, stop MIVF Lines: PIV Consults: GenSurg Code: Full Dispo: patient requires inpatient eval and management at this time but has fortunately improved quickly, anticipate d/c tomorrow, will be homegoing Internal Medicine: Result - Labs CBC & Chem 7: 02/18/19 05:11 02/18/19 05:11 Labs: Short CBC 02/18/19 Range/Units 05:11 WBC 5.3 (4.3-11.1) K/mcL Hgb 10.5 L D (11.5-15.4) g/dL Hct 32.0 L (35.3-44.9) % Plt Count 196 (140-400) K/mcL BMP 02/18/19 05:11 Sodium 137 Potassium 2.7 L Chloride 103 Carbon Dioxide 26 BUN 8 Creatinine 0.67 Glucose 131 H Calcium 8.2 L - Impressions Impressions Small Bowel X-Ray 02/17/19 13:54 IMPRESSION: Mild dilatation of small-bowel loops in the left side of the abdomen which could represent mild ileus or low-grade partial obstruction. Contrast passed readily to the colon by 40 minutes. D/ / 02/17/2019 14:36:28 Jyothi Mcintyre MD / [facility] Interpreting Provider: Jyothi Mcintyre MD Abdomen/Pelvis CT 02/17/19 14:54 IMPRESSION: Findings consistent with intermediate grade small bowel obstruction. There is a narrowed loop of small bowel in the right lower quadrant which may reflect a transition point. D/ / 02/16/2019 20:05:19 Gustavo Baez MD / [facility] Interpreting Provider: Gustavo Baez MD Consult Discharge Plan - Plan Referrals: Leilani Vidales MD [Primary Care Provider] -
[2019-02-18] MEDS ORDERED: Famotidine 20 MG TABLET PO ONE (21:00)
[2019-02-19 03:13] LABS: BUN/Creatinine Ratio 6 (6-26); Blood Urea Nitrogen 5 mg/dL (8-23); Calcium 7.9 mg/dL (8.6-10.3); Carbon Dioxide 26 mEq/L (23-29); Chloride 103 mEq/L (98-107); Glucose 114 mg/dL (70-105); Osmolality,Calculated 280 (280-300); Potassium 3.3 mEq/L (3.5-5.1); Sodium 136 mEq/L (136-145); eGFR For African Americans > 60 (> 60); eGFR For Non-African Americans > 60 (> 60)
[2019-02-19 06:52] VITALS: BP 139/64
--- NOTE | 2019-02-19 07:38 | Discharge Summary ---
- NOTES TO OUTPATIENT PROVIDER Notes to Outpatient Provider: SBO resolved with NG and SBFT, no surgery required. Does have persistent hypokalemia so started on K supplement and needs recheck BMP. Date of Encounter: 02/19/19 Time of Encounter: 07:36 Hospital course: Dear Doctors, I recently had the opportunity to care for this patient during their recent hospital stay at [facility]. Nubia Domingo is a 78 F w hx CVA, HFpEF, HTN, anx/dep, cervical cancer s/p resection, who presented at time of admission with abd pain and N/V. In the ED, she underwent CT which showed dilated bowel and RLQ transition point, concerning for SBO. An NG tube was placed with good effect and patient admitted for further care. In the hospital, patient's symptoms continued to improve. GenSurg was consulted who recommended diagnostic Small Bowel Follow Through, which resulted in therapeutic relief of obstruction. NG eventually removed and diet advanced without recurrence of symptoms. No surgery required. Notably, patient's potassium was 2.7 on admission, and after 200 meq replacement only increased to mid 3s. She states that her potassium is always low and this is a known chronic issue but does not take potassium supplementation. This has been initiated. Dx: Small bowel obstruction, hypokalemia Pertinent tests/consults: - CT showing SBO w transition point RLQ - GenSurg consult - SBFT with relief of obstruction Follow up: PCP 1 week for repeat BMP Tests pending: none Med changes: - start potassium 40 meq daily - change ASA from 325 to 81 Mental status: awake, fully oriented Code status: [employer] spent on discharge: 25 minutes It has been my pleasure participating in this patient's care. Please contact me with any questions or concerns regarding their hospital stay. Sincerely, See Blue MD - Discharge Medications Prescriptions: New Aspirin Enteric Coated [Aspirin EC] 81 mg PO DAILY #30 tablet. Potassium Chloride 40 meq PO DAILY #60 tab.er.prt Continued Furosemide [Lasix] 40 mg PO DAILY PRN PRN Reason: Shortness Of Breath/Wheezing Pravastatin Sodium [Pravachol] 40 mg PO DAILY Metoprolol [Lopressor] 100 mg PO BID Discontinued Aspirin/Calcium Carbonate/Mag [Aspirin Buffered 325 mg Tab] 325 mg PO DAILY Home Medications: Furosemide [Lasix] 40 mg PO DAILY PRN 02/16/19 [History] Pravastatin Sodium [Pravachol] 40 mg PO DAILY 02/16/19 [History] Metoprolol [Lopressor] 100 mg PO BID 02/17/19 [History] Aspirin Enteric Coated [Aspirin EC] 81 mg PO DAILY #30 tablet. 02/19/19 [Rx] Potassium Chloride 40 meq PO DAILY #60 tab.er.prt 02/19/19 [Rx] Allergies/Adverse Reactions: Allergy/AdvReac Type Severity Reaction Status Date / Time Penicillins AdvReac Rash Verified 05/08/16 11:24 Date of admission: 02/17/19 07:43 Primary care physician: Leilani Vidales MD Consults: 02/16/19 21:00 Consult to Surgery [CONS] Stat Consulting Provider: Acute Care Surgery Reason for Consult: Small bowel obstruction Call Completed: Yes 02/18/19 12:03 Consult to Occupational Therapy [CONS] Routine Comment: Evaluate, develop and implement POC Reason for Consult: BMAT 2 Does patient have active BEDREST order?: No Is patient medically & hemodynamically stable?: Yes Patient assessed for mobility or mobilized this visit?: No Consult to Physical Therapy [CONS] Routine Comment: Evaluate, develop and implement POC Reason for Consult: BMAT 2 Does patient have active BEDREST order?: No Is patient medically & hemodynamically stable?: Yes Patient assessed for mobility or mobilized this visit?: No - Constitutional Vitals: Temp Pulse Resp BP Pulse Ox 98.1 F 82 15 139/64 95 02/19/19 06:46 02/19/19 06:46 02/19/19 06:46 02/19/19 06:46 02/19/19 06:46 Exam: General: NAD, good eye contact, relatively well appearing, elderly Thoracic: Normal breath sounds b/l, no wheezing or crackles Cardio: Normal S1 and S2, regular rate and rhythm Abdomen: Soft, nontender, nondistended Extremities: Warm, well perfused. DP pulses 2+ b/l. No edema. Skin: Intact. No rashes, bruises, or ulcers Neuro: Awake, fully oriented. Speech fluent - Patient Status Disposition: Home, Self-Care Condition: Fair Functional capacity at discharge: uses cane/walker Overall status at discharge: patient is progressing back to baseline - Discharge Instructions Follow Up With: Leilani Vidales MD [Primary Care Provider] - (1 week) - Diet and Activity Activity: resume usual activities as tolerated Diet: advance to your usual diet
[2019-02-19] MEDS: Metoprolol 100 MG TABLET PO SCH (08:59)
[2019-02-19] MEDS ORDERED: FLU Vac QV 19-20 (6Month+)/PF 0.5 ML SYRINGE IM ONE (09:14)
== END 2019-02-19 10:19 | disposition home or self-care (01) | DRG 389 ==
LOC: 3ANU 17:07 → EMEROOARM 17:07 → SUATTDRO 21:09 → 3ANU 21:51
PROVIDERS: ADMIT Family Medicine; ATTEND Internal Medicine